=== PATIENT | female | born 1990 | race Caucasian/White ===

== ENCOUNTER 2018-12-03 21:32 | Emergency (ER) | payer OTHER ==
[2018-12-03 21:44] VITALS: TEMP 98.2; BMI 24.3
--- NOTE | 2018-12-03 21:44 | PDOC ---
History of Present Illness - General Chief Complaint: Migraine Headache Stated Complaint: HEADACHE/NAUSEA Time Seen by Provider: 12/03/18 21:43 History Source: Patient Exam Limitations: No Limitations - History of Present Illness Initial Comments: 12/03/18 21:44 Karma Ordonez is a 28F with history of chronic migraines since March 2018 presenting with migraines consistent with her priors. Patient has had history of migraines related to stress, in March was working a job with long hours which she says may have contributed to the start of her current migraines. Has been see by 2 neurologists and had MRIs showing no brain bleeding or lesions as the cause. Has migraines daily, has trialed medications such as naproxen, nortripyline, meclizine, Excedrin, as well as a medication she takes at night that works to stop her migraine but makes her drowsy. Has tried using marijuana as well with limited success. Exacerbated by alcohol use, harbinger symptom is lower back pain with left knee pins and needles. Today patient was doing well until dinnertime when she had one beer and started having a migraine. Same sensation as her typical migraines, a pressure inside her head that moves around, now R>L, with nausea and photophobia. Presenting to ED for pain control. Denies chest pain, SOB, abd pain, urinary sx, unsteady gait, confusion, dizziness. Past History - Past Medical History Allergies/Adverse Reactions: Allergies Allergy/AdvReac Type Severity Reaction Status Date / Time No Known Allergies Allergy Verified 12/03/18 21:34 COPD: No Other medical history: migraines - Psycho Social/Smoking Cessation Hx Smoking History: Never smoked Hx Alcohol Use: Yes ("Socially") Drug/Substance Use Hx: Yes (Marijuanna) Review of Systems - Review of Systems Constitutional: No: Chills, Fever, Loss of Appetite, Malaise, Weakness HEENTM: Yes: Other (photophobia). No: Blurred Vision, Double Vision, Tinnitus, Hearing Loss, Throat Swelling, Mouth Pain, Difficulty Swallowing Respiratory: No: Cough, Shortness of Breath, Stridor, Wheezing Cardiac (ROS): No: Chest Pain, Lightheadedness, Palpitations, Syncope ABD/GI: Yes: Nausea. No: Constipated, Diarrhea, Vomiting : No: Symptoms Reported Musculoskeletal: No: Symptoms Reported Integumentary: No: Symptoms Reported Neurological: Yes: Headache. No: Numbness, Paresthesia, Weakness, Unsteady Gait Psychiatric: Yes: Anxiety (takes Xanax) Endocrine: No: Symptoms Reported Hematologic/Lymphatic: No: Symptoms Reported All Other Systems: Reviewed and Negative *Physical Exam - Vital Signs Last Vital Signs Temp Pulse Resp BP Pulse Ox 98.2 F 78 22 H 127/70 100 12/03/18 21:34 12/03/18 21:34 12/03/18 21:34 12/03/18 21:34 12/03/18 21:34 - Physical Exam General Appearance: Yes: Nourished, Appropriately Dressed, Apparent Distress HEENT: positive: EOMI, MARLEE, Normal ENT Inspection, Normal Voice, Symmetrical, Hearing Grossly Normal. negative: Scleral Icterus (R), Scleral Icterus (L), Muffled/Hoarse voice, Pharyngeal Erythema, Tonsillar Exudate, Tonsillar Erythema , Sinus Tenderness Neck: positive: Trachea midline, Supple. negative: Tender, Rigid, Lymphadenopathy (R), Lymphadenopathy (L) Respiratory/Chest: positive: Lungs Clear, Normal Breath Sounds, Respiratory Distress. negative: Chest Tender, Accessory Muscle Use, Crackles, Rales, Rhonchi, Stridor, Wheezing Cardiovascular: positive: Regular Rhythm, Regular Rate. negative: Murmur Gastrointestinal/Abdominal: positive: Normal Bowel Sounds, Tender (diffusely), Soft. negative: Organomegaly, Guarding, Rebound, Hernia Musculoskeletal: positive: Normal Inspection. negative: CVA Tenderness Extremity: positive: Normal Capillary Refill, Normal Inspection, Normal Range of Motion. negative: Tender Integumentary: positive: Normal Color, Dry, Warm Neurologic: positive: client advocate II-XII NML intact, Fully Oriented, Alert, Normal Mood/ Affect, Normal Response, Motor Strength 5/5, Other (cerebellar exam no dysmetria , gait normal without ataxia) Medical Decision Making - Medical Decision Making 12/03/18 21:44 Karma Ordonez is a 28F with history of chronic migraines since March 2018 presenting with migraines consistent with her priors. Patient presents with migraines consistent with priors and has no focal neurological deficits, pathology such as SAH vs. mass lesion unlikely. Has been evaluated with prior MRI and has good neuro f/u, less likely to be pseudotumor cerebri. Will give 1L NS, 4mg Reglan, and 25mg Benadryl IV for CAMPOS. Also giving 4mg Decadron to aid with migraine prevention. 12/03/18 23:03 Patient re-assessed, feels much better albeit a bit tired after the Benadryl. Discussed seeing her neurologist and seeing a migraine specialist. Stable to go home with neurology f/u. Discharge - Discharge Information Problems reviewed: Yes Clinical Impression/Diagnosis: Migraine Qualifiers: Migraine type: without aura Status migrainosus presence: without status migrainosus Intractability: not intractable Qualified Code(s): G43.009 - Migraine without aura, not intractable, without status migrainosus Condition: Improved Disposition: HOME - Admission No - Follow up/Referral - Patient Discharge Instructions Patient Printed Discharge Instructions: DI for Migraine Additional Instructions: Today you were evaluated for migraines. We gave you medications called Benadryl and Reglan for your headache as well as IV fluids and you felt better. We also gave you a medication called Decadron, which is a steroid that has been shown to reduce repeat migraines. Your migraines my be caused by alcohol use or stress, and our recommendation is to hold off on alcohol and try to de-stress as much as possible, including getting enough sleep, eating well, and eliminating sources of stress in your life. Please follow-up with your primary doctor in the next 3 days for further care. There are specialists for migraines in [place] who may be able to further assist you with medications or therapies to help with your migraines. If you experience numbness, tingling, migraines that cannot be controlled, weakness if your arms or legs, or any other new or concerning symptoms, please return to the emergency room. - Post Discharge Activity Work/Back to School Note: Back to Work
[2018-12-03] MEDS ORDERED: SODIUM CHLORIDE 1,000 ML IV STA (22:09)
[2018-12-03] MEDS ORDERED: METOCLOPRAMIDE HCL INJECTION 10 MG/2 ML VIAL IVPB ONE (22:09)
[2018-12-03] MEDS ORDERED: METOCLOPRAMIDE HCL INJECTION 10 MG/2 ML VIAL ONE (22:36)
[2018-12-03] MEDS ORDERED: DEXAMETHASONE SOD PHOSPHATE 4 MG/1 ML VIAL IVPUSH ONE (23:15)
[2018-12-03] MEDS ORDERED: DEXAMETHASONE SOD PHOSPHATE 4 MG/1 ML VIAL ONE (23:17)
[2018-12-04 00:30] VITALS: BP 121/73; PULSE 74
== END 2018-12-04 | disposition home or self-care (01) ==
LOC: JER 21:32
PROC: 3E0333Z Introduction of Anti-inflammatory into Peripheral Vein, Percutaneous Approach (ICD-10-PCS; principal; 2018-12-03)
PROC: 3E033GC Introduction of Other Therapeutic Substance into Peripheral Vein, Percutaneous Approach (ICD-10-PCS; 2018-12-03)
PROC: 3E033GC Introduction of Other Therapeutic Substance into Peripheral Vein, Percutaneous Approach (ICD-10-PCS; 2018-12-03)
DX: G43.009 Migraine without aura, not intractable, without status migrainosus (principal)
CPT/HCPCS: 99282-25; J7030